=== PATIENT | female | born 1980 | race Caucasian/White ===

== ENCOUNTER 2017-11-01 08:50 | Day surgery (SDC) | payer BC, OTHER ==
[2017-11-01] MEDS ORDERED: PROPOFOL 200 MG/20 ML BOTTLE IV ONE (08:51)
[2017-11-01] MEDS ORDERED: IV LACTATED RINGERS SOLUTION 1,000 ML BAG IV ONE (08:51)
[2017-11-01] MEDS ORDERED: LIDOCAINE HCL 1% 20 ML VIAL MC ONE (08:51)
[2017-11-01 09:28] LABS: *BILIRUBIN,URIN NEGATIVE (NEGATIVE); *BLOOD, URINE Trace-intact (NEGATIVE); *CLARITY,URINE CLEAR (CLEAR); *COLOR,URINE YELLOW (YELLOW); *KETONES,URINE NEGATIVE (NEGATIVE); *PROTEIN,URINE NEGATIVE (NEGATIVE); *UROBILINOGEN,URINE 0.2 E.U./dl (NORMAL); LEUKOCYTE ESTERASE ,URINE NEGATIVE (NEGATIVE); NITRITE, URINE NEGATIVE (NEGATIVE); PH,URINE 8.5 (5.0-8.0); UGLUCOSE NEGATIVE (NEGATIVE)
[2017-11-01 09:36] LABS: CREATININE 0.8 mg/dL (0.6-1.3); POTASSIUM 3.9 mmol/L (3.5-5.1)
[2017-11-01 09:37] LABS: BASOPHILS % (AUTO) 0.5 % (0.0-2.0); EOSINOPHILS % (AUTO) 0.7 % (0.0-7.0); HEMATOCRIT 40.7 % (31.2-41.9); HEMOGLOBIN 13.6 g/dL (10.9-14.3); LYMPHOCYTES # (AUTO) 1.5 K/uL (20.0-40.0); LYMPHOCYTES % (AUTO) 30.1 % (20.5-51.5); MEAN CORPUSCULAR HEMOGLOBIN 28.2 uug (24.7-32.8); MEAN CORPUSCULAR HGB CONC 33 g/dL (32.3-35.6); MEAN CORPUSCULAR VOLUME 84.6 fL (75.5-95.3); MONOCYTES # (AUTO) 0.3 K/uL (2.0-10.0); MONOCYTES % (AUTO) 7.1 % (0.0-11.0); NEUTROPHILS % (AUTO) 61.6 % (38.5-71.5); PLATELET COUNT (AUTO) 194 K/uL (179-408); RED BLOOD CELL COUNT(AUTO) 4.81 MIL/uL (3.63-4.92); WHITE BLOOD COUNT (AUTO) 4.9 K/uL (3.8-11.8)
[2017-11-01 09:41] LABS: *URINE HCG, QUAL NEGATIVE (NEGATIVE)
[2017-11-01 09:56] LABS: BACTERIA,URINE FEW /HPF (NONE SEEN); SQUAMOUS EPITHELIAL CELL,UR FEW /HPF (NONE SEEN); WBC,URINE 0-3 /HPF (0-3)
== END 2017-11-01 11:17 | disposition home or self-care (01) ==
LOC: DS 08:50
PROVIDERS: ATTEND Surgery
DX: R19.4 Change in bowel habit (principal); B15.9 Hepatitis A without hepatic coma; R10.13 Epigastric pain; R00.1 Bradycardia, unspecified; K44.9 Diaphragmatic hernia without obstruction or gangrene; K64.4 Residual hemorrhoidal skin tags; K64.8 Other hemorrhoids; E78.5 Hyperlipidemia, unspecified
CPT/HCPCS: 36415; 84703; 85025; 85730; A4217; A4663; J3490; J7120

== ENCOUNTER 2019-10-30 21:57 | Emergency (ER) | END 2019-10-30 22:26 | disposition home or self-care (01) | DX: S16.1XXA Strain of muscle, fascia and tendon at neck level, initial encounter (principal); R51 Headache; E78.5 Hyperlipidemia, unspecified; K21.9 Gastro-esophageal reflux disease without esophagitis; V49.9XXA Car occupant (driver) (passenger) injured in unspecified traffic accident, initial encounter; Y93.89 Activity, other specified; Y92.89 Other specified places as the place of occurrence of the external cause; Y99.8 Other external cause status ==

== ENCOUNTER 2020-05-22 08:30 | Emergency (ER) | payer OTHER, BC ==
[~2020-05-22] VITALS: Ht 160 cm; Wt 61.2 kg
--- NOTE | 2020-05-22 08:43 | NUR ---
[email or web address],medical screening exam in progress
[2020-05-22] MEDS ORDERED: ACETAMINOPHEN ES 500 MG TABLET PO ONE (09:00)
[2020-05-22] MEDS ORDERED: ACETAMINOPHEN ES 500 MG TABLET ONE (09:06)
--- NOTE | 2020-05-22 10:08 | NUR ---
Patient is resting comfortably on gurney while using her personal electronic device, NAD.
--- NOTE | 2020-05-22 10:11 | NUR ---
Patient discharged to home in stable condition & brisk steady gait. Written and verbal after care instructions given to patient. Patient verbalized understanding & compliance of instructions. Stressed follow up with her primary doctor or return to ER for worsening s/s.
== END 2020-05-22 10:11 | disposition home or self-care (01) ==
LOC: ER 08:30
DX: S09.90XA Unspecified injury of head, initial encounter (principal); S13.9XXA Sprain of joints and ligaments of unspecified parts of neck, initial encounter; S63.91XA Sprain of unspecified part of right wrist and hand, initial encounter; S43.401A Unspecified sprain of right shoulder joint, initial encounter; S63.501A Unspecified sprain of right wrist, initial encounter; S29.011A Strain of muscle and tendon of front wall of thorax, initial encounter; V43.52XA Car driver injured in collision with other type car in traffic accident, initial encounter; Y92.410 Unspecified street and highway as the place of occurrence of the external cause; K21.9 Gastro-esophageal reflux disease without esophagitis; Z98.82 Breast implant status
CPT/HCPCS: 70450; 71250; 72125; 73030; 73110; 73130; A4663; A9150

== ENCOUNTER → 2021-03-19 | Outpatient (CLI) | payer BC, OTHER ==
[2021-03-19 11:00] LABS: BASOPHILS % (AUTO) 0.5 % (0.0-2.0); EOSINOPHILS % (AUTO) 0.7 % (0.0-7.0); HEMOGLOBIN 13.3 g/dL (10.9-14.3); LYMPHOCYTES # (AUTO) 1.7 K/uL (20.0-40.0); LYMPHOCYTES % (AUTO) 27.8 % (20.5-51.5); MEAN CORPUSCULAR HEMOGLOBIN 28.3 uug (24.7-32.8); MEAN CORPUSCULAR HGB CONC 33 g/dL (32.3-35.6); MEAN CORPUSCULAR VOLUME 85.2 fL (75.5-95.3); MONOCYTES # (AUTO) 0.4 K/uL (2.0-10.0); MONOCYTES % (AUTO) 6.9 % (0.0-11.0); NEUTROPHILS % (AUTO) 64.1 % (38.5-71.5); PLATELET COUNT (AUTO) 186 K/uL (179-408); RED BLOOD CELL COUNT(AUTO) 4.69 MIL/uL (3.63-4.92); WHITE BLOOD COUNT (AUTO) 6.2 K/uL (3.8-11.8)
[2021-03-19 11:06] LABS: *BILIRUBIN,URIN NEGATIVE (NEGATIVE); *BLOOD, URINE NEGATIVE (NEGATIVE); *CLARITY,URINE CLEAR (CLEAR); *COLOR,URINE YELLOW (YELLOW); *KETONES,URINE NEGATIVE (NEGATIVE); *UROBILINOGEN,URINE 0.2 E.U./dl (NORMAL); LEUKOCYTE ESTERASE ,URINE NEGATIVE (NEGATIVE); NITRITE, URINE NEGATIVE (NEGATIVE); PH,URINE >=9.0 (5.0-8.0); UGLUCOSE NEGATIVE (NEGATIVE)
[2021-03-19 11:12] LABS: BILIRUBIN,TOTAL 0.5 mg/dL (0.2-1.0); POTASSIUM 4.4 mmol/L (3.5-5.1); TOTAL PROTEIN, SERUM 7.7 g/dL (6.4-8.2)
[2021-03-19 11:20] LABS: THYROID STIMULATING HORMONE 1.036 mIU/mL (0.358-3.740)
[2021-03-19 15:04] LABS: BACTERIA,URINE NONE SEEN /HPF (NONE SEEN); RBC,URINE 0-3 /HPF (0-3); SQUAMOUS EPITHELIAL CELL,UR NONE SEEN /HPF (NONE SEEN); URINE AMORPHOUS PHOSPHATES FEW /HPF; WBC,URINE 0-3 /HPF (0-3)
== END | disposition home or self-care (01) ==
LOC: LAB 10:10
PROVIDERS: ATTEND Family Medicine
DX: F41.1 Generalized anxiety disorder (principal); M54.9 Dorsalgia, unspecified; Z79.899 Other long term (current) drug therapy
CPT/HCPCS: 82306; 84443; 85025

== ENCOUNTER 2022-02-24 09:53 | Emergency (ER) | payer BC, OTHER ==
[~2022-02-24] VITALS: Ht 160 cm; Wt 58.5 kg
--- NOTE | 2022-02-24 10:00 | NUR ---
Patient ambulatory, alert and oriented x4, complaints of sore throat for 5 days. Vitals stable, denies chills/fever.
--- NOTE | 2022-02-24 10:03 | NUR ---
MD at bedside, medical screening exam in process.
[2022-02-24] MEDS ORDERED: ACETAMINOPHEN ES 500 MG TABLET ONE ×2 (12:20)
--- NOTE | 2022-02-24 12:20 | NUR ---
MD ordered tylenol 1 gram and motrin 800mg 1 tab. Patient took tylenol 1 gram at 1220 per [place] but refused motrin 800mg.
[2022-02-24 12:25] VITALS: BP 126/80
--- NOTE | 2022-02-24 12:27 | NUR ---
Patient discharged to home in stable condition. Written and verbal after care instructions given. Patient verbalizes understanding of instructions. Stressed follow up or return to ER for worsening s/s.
[2022-02-24] MEDS ORDERED: IBUPROFEN 800 MG TABLET PO ONE (12:30)
[2022-02-24] MEDS ORDERED: ACETAMINOPHEN ES 500 MG TABLET PO ONE (12:30)
== END 2022-02-24 12:27 | disposition home or self-care (01) ==
LOC: ER 09:53
DX: J02.8 Acute pharyngitis due to other specified organisms (principal); E78.5 Hyperlipidemia, unspecified; K21.9 Gastro-esophageal reflux disease without esophagitis
CPT/HCPCS: 70360; 86403; 87070; A4663; A9150

== ENCOUNTER 2022-08-24 11:31 | Outpatient (CLI) | payer BC, OTHER ==
[2022-08-25 06:06] LABS: PROLACTIN 9.2 ng/mL (4.8-23.3)
== END 2022-08-24 23:59 | disposition home or self-care (01) ==
LOC: LAB 11:31
PROVIDERS: ATTEND Family Medicine
DX: N83.209 Unspecified ovarian cyst, unspecified side (principal); R53.83 Other fatigue
CPT/HCPCS: 36415; 82746; 84146; 84480

== ENCOUNTER → 2023-05-05 | Outpatient (CLI) | payer BC, OTHER | END | disposition home or self-care (01) | LOC: RAD 09:20 | PROVIDERS: ATTEND Family Medicine | DX: R10.9 Unspecified abdominal pain (principal) | CPT/HCPCS: 76700 ==

== ENCOUNTER 2025-01-27 12:03 | Day surgery (SDC) | payer BC, OTHER ==
[2025-01-27 13:17] LABS: *URINE HCG, QUAL NEGATIVE (NEGATIVE)
[2025-01-27] MEDS ORDERED: PROPOFOL 200 MG/20 ML BOTTLE ONE (13:32)
[2025-01-27 14:35] VITALS: TEMP 97.2
== END 2025-01-27 14:35 | disposition home or self-care (01) ==
LOC: DS 12:03
PROVIDERS: ATTEND Internal Medicine Gastroenterology
DX: Z12.11 Encounter for screening for malignant neoplasm of colon (principal); K21.9 Gastro-esophageal reflux disease without esophagitis; K64.8 Other hemorrhoids; K29.50 Unspecified chronic gastritis without bleeding; B96.81 Helicobacter pylori [H. pylori] as the cause of diseases classified elsewhere; Z79.899 Other long term (current) drug therapy; Z98.890 Other specified postprocedural states
CPT/HCPCS: 43239; 45378; 84703; 88305; 88312; 88313; J3490; J7120; A4663

== ENCOUNTER 2025-08-01 11:13 | Outpatient (CLI) | payer BC, OTHER ==
[2025-08-01 11:36] LABS: PLATELET COUNT (AUTO) 259 K/uL (179-408); RED BLOOD CELL COUNT(AUTO) 4.58 MIL/uL (3.63-4.92); RED CELL DISTRIBUTION WIDTH 13.0 % (12.3-17.7); WHITE BLOOD COUNT (AUTO) 8.9 K/uL (3.8-11.8)
[2025-08-01 12:04] LABS: IRON, SERUM 43.0 ug/dL (50-175)
[2025-08-01 12:28] LABS: ASPARTATE AMINOTRANSFERASE 10.0 U/L (15-37); CREATININE 0.8 mg/dL (0.6-1.3); SODIUM SERUM 138.0 mmol/L (136-145); TOTAL PROTEIN, SERUM 8.0 g/dL (6.4-8.2); UREA NITROGEN, BLOOD 13.0 mg/dL (7-18)
[2025-08-02 04:10] LABS: VIT D, 25-HYDROXY 71.1 ng/mL (30.0-100.0)
[2025-08-02 05:13] LABS: TRIIODOTHYRONINE, FREE 2.3 pg/mL (2.0-4.4)
[2025-08-02 06:07] LABS: FOLATE (FOLIC ACID), SERUM 10.4 ng/mL (>3.0)
== END 2025-08-01 23:59 | disposition home or self-care (01) ==
LOC: LAB 11:13
PROVIDERS: ATTEND Family Medicine
DX: E55.9 Vitamin D deficiency, unspecified (principal); E78.2 Mixed hyperlipidemia; Z79.899 Other long term (current) drug therapy
CPT/HCPCS: 36415; 82306; 82746; 83550; 83735; 84443; 84481; 84550; 85025